=== PATIENT | female | born 1995 | race Caucasian/White ===

== ENCOUNTER 2018-09-08 15:26 | Outpatient (CLI) | payer OTHER ==
[2018-09-08 16:03] LABS: Mean Corpuscular HGB CONC 33.2 g/dL (32.0-36.0); Mean Corpuscular Hemoglobin 26.8 pg (27.0-31.0); Mean Corpuscular Volume 80.8 fL (78.0-98.0); Platelet Count 436 thou/uL (130-400); RBC Distribution Width 12.6 % (11.5-14.5); Red Blood Cell (RBC) Count 4.45 mill/uL (4.20-5.40); White Blood Cell (WBC) Count 7.9 thou/uL (4.8-10.8)
[2018-09-08 16:12] LABS: BHCG - Serum Negative (NEGATIVE); Pregs Control Background? CLEAR/WHITE (CLR/WHITE); Pregs Control Bar Appear? YES (CONTROL BAR)
[2018-09-08 16:13] LABS: PTT 28.2 SEC (22.9-36.1)
[2018-09-08 16:25] LABS: Anion Gap 12 mmol/L (10-20); BUN (Urea Nitrogen) 15 mg/dL (7.0-18.7); Calc. Creatinine Clearance 0 mL/min (70-130); Calcium 10.1 mg/dL (7.8-10.44); Carbon Dioxide 29 mmol/L (22-29); Chloride 103 mmol/L (98-107); Estimated GFR-MDRD 74; Glucose 83 mg/dL (70-105); Potassium 3.5 mmol/L (3.5-5.1); Sodium 140 mmol/L (136-145)
== END 2018-09-08 15:27 | disposition home or self-care (01) ==
LOC: LABBT 15:26
PROVIDERS: ATTEND Urology
DX: Z01.818 Encounter for other preprocedural examination (principal); N20.1 Calculus of ureter
CPT/HCPCS: 80048; 84703; 85027; 85610; 85730

== ENCOUNTER 2018-09-14 06:42 | Day surgery (SDC) | payer OTHER ==
[2018-09-08 15:57] VITALS: BMI 35.9
--- NOTE | 2018-09-14 07:48 | RAD ---
Exam: Abdomen one view HISTORY: Preoperative exam. Ureterolithiasis. FINDINGS: Left-sided double-J ureteral stent, appropriately position. No radiographic evidence of a c alculus on the course of the right ureter. Unremarkable bowel gas pattern IMPRESSION: Left-sided ureteral stent, appropriately positioned.
[2018-09-14] MEDS ORDERED: cefTRIAXone\\ROCEPHIN 1 GM VIAL ONE (08:07)
[2018-09-14] MEDS ORDERED: Sodium Chloride 0.9% 100 ML ONE (08:07)
[2018-09-14] MEDS ORDERED: Iothalamate Meglumine 60% 50 ML VIAL FS ONE (08:10)
[2018-09-14] MEDS ORDERED: Fentanyl 100 MCG/2 ML VIAL ONE (08:15)
[2018-09-14] MEDS ORDERED: Phenazopyridine HCl 97.5 MG TABLET ONE ×2 (09:25)
[2018-09-14] MEDS ORDERED: Oxybutynin 5 MG TAB ONE (09:25)
--- NOTE | 2018-09-14 10:11 | OP ---
DATE OF PROCEDURE: 09/14/2018 PREOPERATIVE DIAGNOSIS: A 23-year-old female with history of left distal ureteral stone, 6 mm, status post ureteral stent. POSTOPERATIVE DIAGNOSIS: A 23-year-old female with history of left distal ureteral stone, 6 mm, status post ureteral stent. PROCEDURES PERFORMED: Cystoscopy, left retrograde pyelogram, 6 x 28 double-J ureteral stent exchange, ureteroscopy, laser lithotripsy, and basket extraction of stone debris. ANESTHESIA: General. COMPLICATIONS: None apparent. SPECIMEN: Stone for chemical analysis. INDICATIONS FOR THE PROCEDURE AND HISTORY: Yen is a pleasant 23-year-old female who presented to the emergency room due to intractable left flank pain, found to have a left 6 mm distal ureteral stone. On initial retrograde, she had high- grade obstruction requiring 4.5-Frisian stent and a 6-Frisian stent could not be passed. She presents today for cystoscopy, ureteroscopy, laser lithotripsy. Risks and complications of the procedure were reviewed with her in detail including, but not limited to, bleeding, pain, infection, injury to adjacent organs, stricture disease, possible secondary procedure. All questions were answered to her satisfaction and she desired to proceed. DESCRIPTION OF PROCEDURE: After an informed consent was signed, the patient was taken to the operating room and placed in a dorsal lithotomy position with the genital area prepped and draped in the usual surgical sterile fashion. Bilateral FARIDA hose, SCDs and broad-spectrum antibiotics were provided. A 21-Frisian cystoscope was utilized for cystoscopy, which we visualized the pre-existing stent without significant issues. This was removed to the level of the meatus and a 0.035 Sensor wire was passed through the stent into the left upper pole. The stent was completely removed and we began our ureteroscopy. The scope passed without difficulty as she was passively dilated. The stone was visualized in the distal ureter just proximal to the intramural ureter portion. Using 200 micron laser fiber at dust setting, we laser lithotripsied the stone into multiple fragments. All stones were evacuated to the level of the bladder. I did retrieve 1 fragment debris for chemical analysis. At the end of the procedure, there was no evidence of further stone nidus. I was able to pass the scope proximally into the proximal ureter without difficulty and no stone nidus was seen. There was some bullous edema of the area on the ureter where the stone presented consistent with an obstructing stone. No evidence of ureteral injury was seen. A 6 x 28 double-J ureteral stent was passed without difficulty. This was left on as there was endoscopic clearance. She will follow up with me next Wednesday for stent pull on . She is discharged with broad-spectrum antibiotics of ciprofloxacin until followup appointment, may continue her VESIcare, tramadol provided for her discomfort. Earnest caicedo advised. Job ID: [id number]
[2018-09-14] MEDS ORDERED: Rocuronium Bromide 10 MG/ML (10ML VIAL) ONE (11:13)
[2018-09-14] MEDS ORDERED: Glycopyrrolate 0.2 MG/ML 5 ML SYRINGE ONE (11:13)
[2018-09-14] MEDS ORDERED: Ketorolac Tromethamine 30 MG/ML VIAL ONE (11:13)
[2018-09-14] MEDS ORDERED: Ondansetron PF 4 MG/2 ML Vial ONE (11:13)
[2018-09-14] MEDS ORDERED: Lidocaine 1% PF 5 ML VIAL ONE (11:13)
[2018-09-14] MEDS ORDERED: PROPOFOL 200 MG/20 ML VIAL ONE (11:13)
[2018-09-14] MEDS ORDERED: Dexamethasone 20 MG/5 ML VIAL ONE (11:13)
[2018-09-19 16:09] LABS: CA Oxalate Dihydrate 20 % (.); CA Oxalate Monohydrate 75 % (.); Color Tan (.); Stone Size 3x2x1 mm (.); Stone Weight 6.6 mg (.)
== END 2018-09-14 10:55 | disposition home or self-care (01) ==
LOC: SDC 06:42
PROVIDERS: ATTEND Urology
PROC: 0TF78ZZ Fragmentation in Left Ureter, Via Natural or Artificial Opening Endoscopic (ICD-10-PCS; principal; 2018-09-14)
PROC: 0T778DZ Dilation of Left Ureter with Intraluminal Device, Via Natural or Artificial Opening Endoscopic (ICD-10-PCS; principal; 2018-09-14)
DX: N20.1 Calculus of ureter (principal); J45.909 Unspecified asthma, uncomplicated; Z79.3 Long term (current) use of hormonal contraceptives; Z79.899 Other long term (current) drug therapy; Z88.5 Allergy status to narcotic agent
CPT/HCPCS: 74018; 76000; 82365; 88300; C1758; C1769; J0696; J3010; J3490; Q9961